=== PATIENT | female | born 1940 | race Caucasian/White ===

== ENCOUNTER → 2019-01-06 | Day surgery (SDC) | payer MEDICARE ==
[2019-01-04 14:22] LABS: BASOPHILS # (AUTO) 0.1 (0.0-0.1); BASOPHILS % 0.9 % (0.0-1.0); EOSINOPHILS # (AUTO) 0.3 (0.0-0.4); EOSINOPHILS % 1.8 % (0.0-6.0); HEMATOCRIT 34.8 % (34.2-44.1); HEMOGLOBIN 10.6 g/dL (12.0-16.0); LYMPHOCYTES # (AUTO) 3.3 (1.0-3.2); MEAN CORPUSCULAR HEMOGLOBIN 27.2 pg (28-32); MEAN CORPUSCULAR HGB CONC 30.5 g/dL (31-35); MEAN CORPUSCULAR VOLUME 89.5 fL (81-99); MONOCYTES % 6.8 % (4.4-11.3); NEUTROPHILS # (AUTO) 9.4 (2.1-6.9); NEUTROPHILS % 66.1 % (38.7-80.0); PLATELET COUNT 429 x10e3/uL (140-360); RED BLOOD COUNT 3.89 x10e6/uL (3.6-5.1); RED CELL DISTRIBUTION WIDTH 27.7 % (11.7-14.4)
[~2019-01-06] MED LIST: ATROVENT HFA12.9 GM; CITALOPRAM HBR20 MG PO; CYCLOBENZAPRINE10 MG PO; DIGOXIN125 MCG PO; EPHEDRINE SULFATE INJ 50 MG/10 ML SYR ONE; FAMOTIDINE20 MG PO; FENTANYL CITRATE/PF 100MCG/2 ML INJ ONE; FLOVENT HFA12 G1; FUROSEMIDE40 MG PO; GABAPENTIN300 MG PO; GLIMEPIRIDE2 MG PO; IRON; LIDOCAINE HCL 2% LOCAL INJ 5 ML SDV VIAL INJ ONE; LISINOPRIL2.5 MG PO; METOCLOPRAMIDE10 MG PO; MIDAZOLAM HCL 2 MG/2 ML VIAL ONE; NAPROXEN250 MG PO; NAPROXEN500 MG PO; NORCO 10-325 T1 EACH PO; OXYBUTYNIN CHLOR5 MG PO; PANTOPRAZOLE SO40 MG PO; PIOGLITAZONE HC45 MG PO; PREDNISONE20 MG PO; PROPOFOL IV EMULSION 10 MG/ML 50 ML VIAL ONE; REGLAN10 MG PO; SIMVASTATIN20 MG PO; STOOL SOFTENER50 MG; TIZANIDINE HCL4 M1 PO; TIZANIDINE HCL4 MG PO; TRAMADOL HCL100 MG PO; ULTRAM50 MG PO
--- OUTSIDE RECORDS SUMMARY | 2019-01-06 09:41 | XMS REPORT | Clinical Summary ---
Author Author [facility] Organization [facility] Address Unknown Phone Unavailable Care Team Providers Care Robotics Testing Technician Name Role Phone Jeferson Espinosa MD PCP Allergies Comments Active Allergy Reactions Severity Noted Date Codeine GI 05/28/2017 Intolerance Medications End Date Status Medication Sig Dispensed Refills Start Date Active simvastatin (ZOCOR) 20 MG Take 20 mg by 0 tablet mouth nightly. Active famotidine (PEPCID) 20 MG Take 20 mg by 0 tablet mouth 2 (two) times a day. Active digOXIN (LANOXIN) 125 mcg Take 125 mcg 0 tablet by mouth daily. Active gabapentin (NEURONTIN) Take 600 mg 0 600 mg tablet by mouth 3 (three) times a day. Active lisinopril Take 5 mg by 0 (PRINIVIL,ZESTRIL) 5 mg mouth daily. tablet Active glimepiride (AMARYL) 4 MG Take 4 mg by 0 tablet mouth 2 (two) times a day. Active traMADol (ULTRAM) 50 mg Take 100 mg 0 tablet by mouth every 8 (eight) hours as needed for moderate pain. Active citalopram (CeleXA) 40 MG Take 40 mg by 0 tablet mouth every evening. Active pioglitazone (ACTOS) 30 Take 30 mg by 0 MG tablet mouth every morning. Active oxybutynin (DITROPAN) 5 Take 5 mg by 0 MG tablet mouth 2 (two) times a day. 05/10/2018 Discontinued ipratropium (ATROVENT Inhale 2 0 HFA) 17 mcg/actuation puffs 4 inhaler (four) times a day. 05/10/2018 Discontinued fluticasone (FLOVENT HFA) Inhale 2 0 220 mcg/actuation inhaler puffs every 12 (twelve) hours. 05/10/2018 Discontinued albuterol (ACCUNEB) 2.5 Take 2.5 mg 0 mg /3 mL (0.083 %) by nebulizer solution nebulization every 6 (six) hours as needed for wheezing. 06/09/2018 ipratropium (ATROVENT Inhale 2 12.9 g 0 HFA) 17 mcg/actuation puffs 4 8 inhaler (four) times a day for 30 days. 06/09/2018 albuterol (ACCUNEB) 2.5 Take 3 mL 75 mL 0 mg /3 mL (0.083 %) (2.5 mg 8 nebulizer solution total) by nebulization every 6 (six) hours as needed for wheezing for up to 30 days. 06/09/2018 fluticasone (FLOVENT HFA) Inhale 2 12 g 0 220 mcg/actuation inhaler puffs every 8 12 (twelve) hours for 30 days. 05/15/2018 predniSONE (DELTASONE) 50 Take 1 tablet 5 tablet 0 mg tablet (50 mg total) 8 by mouth daily for 5 days. 09/19/2018 naproxen (NAPROSYN) 250 Take 1 tablet 10 tablet 0 08/20/201 MG tablet (250 mg 9 total) by mouth 2 (two) times a day with meals for 30 days. 12/08/2018 ipratropium-albuterol Take 3 mL by 540 mL 0 (DUO-NEB) 0.5-2.5 mg/3 mL nebulization 9 nebulizer every 4 (four) hours for 30 days. 12/09/2018 predniSONE (DELTASONE) 20 Take 1 tablet 10 tablet 0 mg tablet (20 mg total) 9 by mouth daily for 30 days. 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 06/23/2017 Closed compression fracture of L1 lumbar vertebra 05/28/2017 Encounters Care Team Description Date Type Specialty Ezekiel George MD Berberian, Esteban N., MD COPD exacerbation (HCC) (Primary Dx); Anemia, unspecified type 11/06/2018 Emergency General Internal Medicine - 11/08/2018 11/06/2018 Travel Thiago Manrique DO Sprain of low back, initial encounter (Primary Dx); Sacral insufficiency fracture, initial encounter; Chronic bilateral low back pain without sciatica 08/20/2018 Emergency Emergency Medicine 07/12/2018 Emergency Emergency Medicine Jeferson Espinosa MD Tremor; Radiculopathy of cervical spine 06/24/2018 Hospital Radiology Encounter Jeferson Espinosa MD Screening breast examination 06/24/2018 Hospital Radiology Encounter Jeferson Espinosa MD Tremor of unknown origin; Radiculopathy of cervical spine 06/24/2018 Hospital Radiology Encounter Jeferson Espinosa MD Tremor of unknown origin (Primary Dx); Radiculopathy of cervical spine; Screening breast examination 06/15/2018 Transcribe Access Orders Gerhard Morris Jr., Jt Kuo MD COPD with acute exacerbation (HCC) (Primary Dx) 05/10/2018 Emergency Emergency Medicine after 01/05/2018 Immunizations Name Dates Previously Given Next Due FLUCELVAX QUAD PF (0.5mL 08/15/2017 syringe) Social History Date Tobacco Use Types Packs/Day Years Used Former Smoker 1.5 Smokeless Tobacco: Former Quit: 05/28/2004 User Comments: quit smoking Alcohol Use Drinks/Week oz/Week Comments No Sex Assigned at Date Recorded Not on file Industry Job Start Date Occupation Not on file Not on file Not on file Travel End Travel History Travel Start No recent travel history available. Last Filed Vital Signs Time Taken Vital Sign Reading 11/08/2018 11:43 AM CDT Blood Pressure 147/65 11/08/2018 3:40 PM CDT Pulse 85 11/08/2018 11:43 AM CDT Temperature 36.2 C (97.1 F) 11/08/2018 3:40 PM CDT Respiratory Rate 18 11/08/2018 11:43 AM CDT Oxygen Saturation 97% - Inhaled Oxygen - Concentration 11/06/2018 11:27 PM CDT Weight 75.8 kg (167 lb) 11/06/2018 11:27 PM CDT Height 167.6 cm (5' 6") 11/06/2018 11:27 PM CDT Body Mass Index 26.95 Plan of Treatment Health Maintenance Due Date Last Done Comments SHINGLES VACCINES (#1) 1990 65+ PNEUMOCOCCAL VACCINE 2005 (1 of 2 - PCV13) INFLUENZA VACCINE 02/24/2019 08/15/2017 Implants Device Identifier Shelf Expiration Date Model / Serial / Lot Implanted Type Area Manufactur er [id number] / / Kit Sys Autoplex W/O Ndl Vertaplex Surgical N/A: N/A DOTTIE Hv Strl - [id number] Implants; INSTRUMENT Implanted: 05/29/2017 (Quantity not Expanders; S on file) Extenders; Surgical Wires Procedures Comments Procedure Name Priority Date/Time Associated Diagnosis POC GLUCOSE Routine 11/08/2018 12:00 PM CDT POC GLUCOSE Routine 11/08/2018 6:33 AM CDT TRANSFUSE RED BLOOD CELLS Routine 11/08/2018 5:44 AM CDT MANUAL DIFFERENTIAL Routine 11/08/2018 4:29 AM CDT ESTIMATED GFR Routine 11/08/2018 4:29 AM CDT BASIC METABOLIC PANEL Routine 11/08/2018 4:29 AM CDT CBC WITH PLATELET AND Routine 11/08/2018 DIFFERENTIAL 4:29 AM CDT TRANSFUSE RED BLOOD CELLS Routine 11/08/2018 1:08 AM CDT POC GLUCOSE Routine 11/07/2018 8:24 PM CDT POC GLUCOSE Routine 11/07/2018 4:21 PM CDT MANUAL DIFFERENTIAL Routine 11/07/2018 4:48 AM CDT ESTIMATED GFR Routine 11/07/2018 4:48 AM CDT BASIC METABOLIC PANEL Routine 11/07/2018 4:48 AM CDT CBC WITH PLATELET AND Routine 11/07/2018 DIFFERENTIAL 4:48 AM CDT TROPONIN Timed 11/07/2018 1:42 AM CDT TROPONIN Timed 11/06/2018 9:40 PM CDT PREPARE RBC Routine 11/06/2018 6:41 PM CDT TYPE AND SCREEN Routine 11/06/2018 6:41 PM CDT MANUAL DIFFERENTIAL STAT 11/06/2018 5:05 PM CDT ESTIMATED GFR STAT 11/06/2018 5:05 PM CDT B NATRIURETIC PEPTIDE STAT 11/06/2018 5:05 PM CDT TROPONIN STAT 11/06/2018 5:05 PM CDT COMPREHENSIVE METABOLIC STAT 11/06/2018 PANEL 5:05 PM CDT CBC WITH PLATELET AND STAT 11/06/2018 DIFFERENTIAL 5:05 PM CDT XR CHEST 2 VW STAT 11/06/2018 5:01 PM CDT ECG 12-LEAD STAT 11/06/2018 4:38 PM CDT ECG ED PRELIMINARY Routine 11/06/2018 INTERPRETATION 4:[address] LUMBAR SPINE WO STAT 08/20/2018 CONTRAST 11:30 AM SUPERVISOR TOWER URINALYSIS SCREEN AND Routine 07/12/2018 MICROSCOPY, WITH REFLEX 3:15 PM [employer]PERVISOR TOWER TO CULTURE GRAM STAIN Routine 07/12/2018 3:15 PM [employer] URINE CULTURE Routine 07/12/2018 3:15 PM [employer]PER[employer]OWER XR CERVICAL SPINE Routine 06/24/2018 Tremor COMPLETE 2:25 PM [employer] Radiculopathy of cervical spine MAMMO BREAST SCREEN Routine 06/24/2018 Screening breast TOMOSYNTHESIS BILATERAL 1:34 PM [employer]PER[employer]OR TOWER examination MRI CERVICAL SPINE WO Routine 06/24/2018 Tremor of unknown origin CONTRAST 12:31 PM [employer]OWER Radiculopathy of cervical spine XR CHEST 2 VW STAT 05/10/2018 8:49 PM CDT ECG ED PRELIMINARY Routine 05/10/2018 INTERPRETATION 7:56 PM CDT SMEAR REVIEW STAT 05/10/2018 7:48 PM CDT D-DIMER STAT 05/10/2018 7:48 PM CDT ESTIMATED GFR STAT 05/10/2018 7:48 PM CDT B NATRIURETIC PEPTIDE STAT 05/10/2018 7:48 PM CDT TROPONIN STAT 05/10/2018 7:48 PM CDT COMPREHENSIVE METABOLIC STAT 05/10/2018 PANEL 7:48 PM CDT HC COMPLETE BLD COUNT STAT 05/10/2018 W/AUTO DIFF 7:48 PM CDT ECG 12-LEAD STAT 05/10/2018 7:15 PM CDT after 01/05/2018 Results * POC glucose (11/08/2018 12:00 PM CDT) Only the most recent of 4 results within the time period is included. [facility] POC glucose 154 (H) 65 - 100 mg/dL [facility] Comment: [place] Meter ID: [id number] [facility] Ladle Repairman: [facility] Specimen Performing Organization Address City/State/Zipcode Phone Number [facility] [address] [place] [address] PATHOLOGY AND GENOMIC MEDICINE [place] [id number] [place], [place] [id number] [place] [address] * Transfuse RBC (11/08/2018 5:44 AM CDT) Only the most recent of 3 results within the time period is included. * Estimated GFR (11/08/2018 4:29 AM CDT) Only the most recent of 4 results within the time period is included. [facility] Estimated GFR 43 (A) mL/min/1.73 m2 [facility] Comment: [facility] G1 >=90 Normal or high G2 60-89Mildly decreased F6m64-05 Mildly to moderately decreased F8g72-25 Moderately to severely decreased G4 15-29Severely decreased G5 <15Kidney failure The eGFR was calculated using the Chronic Kidney Disease Epidemiology Collaboration (CKD-EPI) equation. Interpretation is based on recommendations of the National Kidney Foundation-Kidney Disease Outcomes Quality Initiative (NKF-KDOQI) published in 2014. Specimen Plasma specimen Performing Organization Address City/State/Zipcode Phone Number [facility] [address] [facility] [place] [address] PATHOLOGY AND GENOMIC MEDICINE [address] * Manual differential (11/08/2018 4:29 AM CDT) Only the most recent of 3 results within the time period is included. Manual PERFORMED [facility] differential [facility] Neutrophils 77.0 (H) 36.0 - 66.0 % [facility] Lymphocytes 15.0 (L) 24.0 - 44.0 % [facility] Monocytes 3.0 0.0 - 6.0 % [facility] Eosinophils 0.0 0.0 - 6.0 % [facility] Basophils 0.0 0.0 - 1.2 % [facility] Metamyelocytes 0 0 - 1 % [facility] Myelocytes 5 (H) 0 - 1 % [facility] Promyelocytes 0 0 - 1 % [facility] Platelet slide Brayden slt incr [facility] review [facility] Toxic Slight [facility] granulation [facility] Anisocytosis Moderate [facility] Polychromasia slight [facility] Tear drop cells Occasional [facility] Schistocytes Occasional [facility] Ovalocytes Moderate [facility] Enlarged few [facility] platelets [facility] Specimen Performing Organization Address City/State/Zipcode Phone Number [place] [id number] [place] [address] PATHOLOGY AND GENOMIC MEDICINE [place] [id number] * CBC with platelet and differential (11/08/2018 4:29 AM CDT) Only the most recent of 4 results within the time period is included. WBC 14.9 (H) 4.2 - 11.0 k/uL [facility] RBC 4.17 4.04 - 5.86 m/uL [facility] HGB 9.2 (L)Comment: REC. 2 UNIT 11.5 - 15.3 g/dL [facility] HCT 32.0 (L) 34.0 - 45.0 % [facility] MCV 76.7 (L) 80.0 - 98.0 fL [facility] MCH 22.1 (L) 27.0 - 34.0 pg [facility] MCHC 28.8 (L) 31.5 - 36.5 g/dL [facility] RDW - SD 72.9 (H) 37.0 - 51.0 fL [facility] MPV 9.2 7.4 - 10.4 fL [facility] Platelet count 511 (H) 150 - 400 k/uL [facility] Nucleated RBC 0.40 /100 WBC [facility] Neutrophils 77.0 (H) 36.0 - 66.0 % [facility] Lymphocytes 15.0 (L) 24.0 - 44.0 % [facility] Monocytes 3.0 0.0 - 6.0 % [facility] Eosinophils 0.0 0.0 - 6.0 % [facility] Basophils 0.0 0.0 - 1.2 % [facility] Specimen Blood Performing Organization Address City/State/Zipcode Phone Number [facility] [address] [place] [id number] PATHOLOGY AND GENOMIC MEDICINE [place] [phone] * Basic metabolic panel (11/08/2018 4:29 AM CDT) Only the most recent of 2 results within the time period is included. [facility] Sodium 132 (L) 135 - 150 mEq/L [facility] Potassium 4.9 3.5 - 5.0 mEq/L [facility] Chloride 92 (L) 98 - 112 mEq/L [facility] CO2 33 (H) 24 - 31 mmol/L [facility] Anion gap 7@ANIO 7 - 15 mEq/L [facility] BUN 18 7 - 18 mg/dL [facility] Creatinine 1.20 (H) 0.50 - 0.90 mg/dL [facility] Glucose 100 65 - 100 mg/dL [facility] Calcium 9.7 8.8 - 10.2 mg/dL [facility] Specimen Plasma specimen Performing Organization Address City/[facility]/[place] [address] PATHOLOGY AND [facility] MEDICINE [address] * Troponin (11/07/2018 1:42 AM CDT) Only the most recent of 4 results within the time period is included. [facility] Troponin <0.30 0.00 - 0.30 ng/mL [facility] Comment: [facility] 0.11 - 1.49 [facility] indicate increased risk of acute coronary syndrome. >=1.5 ng/ml Consistent with acute myocardial infarction. The diagnostic value of a single normal or non-diagnostic result is questionable.Serial samples at 2-6 hour intervals are required to rule out acute myocardial injury. Specimen Plasma specimen Performing Organization Address City/[facility]/[place] [address] PATHOLOGY AND [facility] MEDICINE [address] * Prepare RBC, 2 Units (11/06/2018 6:41 PM CDT) [facility] Product name Red Blood Cells -1, Leukored [facility] Unit number [id number] [facility] Product code [id number] [facility] Dispense status Returned to BB not transfused [facility] Blood [id number] [facility] expiration date [facility] Blood type code 6200 [facility] Blood type A POSITIVE [facility] Product name Red Blood Cells -1, Leukored [facility] Unit number [id number] [facility] Product code [id number] [facility] Dispense status Transfused [facility] Blood [id number] [facility] expiration date [facility] Blood type code 6200 [facility] Blood type A POSITIVE [facility] Product name Red Blood Cells -1, Leukored [facility] Unit number [id number] [facility] Product code [id number] [facility] Dispense status Transfused [facility] Blood [id number] [facility] expiration date [facility] Blood type code 6200 [facility] Blood type A POSITIVE [facility] Specimen Blood Performing Organization Address City/[facility] Phone Number [facility] [address] [place] [address] PATHOLOGY AND GENOMIC MEDICINE [place] [address] * Type and screen (11/06/2018 6:41 PM CDT) ABO grouping A [facility] Rh type POS [facility] Antibody screen NEG [facility] (gel) [facility] Specimen Blood Performing Organization Address City/[facility]/Zipcode Phone Number [facility] [place] [address] [place] [address] PATHOLOGY AND GENOMIC MEDICINE [place] [address] [address] * B natriuretic peptide (11/06/2018 5:05 PM CDT) Only the most recent of 2 results within the time period is included. BNP 62 0 - 100 pg/mL [facility] Specimen Blood Performing Organization Address City/[facility]/Zipcode Phone Number [facility] [address] [place] [address] PATHOLOGY AND GENOMIC MEDICINE [place] [address] * Comprehensive metabolic panel (11/06/2018 5:05 PM CDT) Only the most recent of 2 results within the time period is included. Sodium 127 (L) 135 - 150 mEq/L [facility] Potassium 4.9 3.5 - 5.0 mEq/L [facility] Chloride 83 (L) 98 - 112 mEq/L [facility] CO2 34 (H) 24 - 31 mmol/L [facility] Anion gap 10@ANIO 7 - 15 mEq/L [facility] BUN 24 (H) 7 - 18 mg/dL [facility] Creatinine 1.40 (H) 0.50 - 0.90 mg/dL [facility] Glucose 292 (H) 65 - 100 mg/dL [facility] Calcium 9.0 8.8 - 10.2 mg/dL [facility] Protein 6.9 6.3 - 8.3 g/dL [facility] Albumin 3.0 (L) 3.5 - 5.0 g/dL [facility] A/G ratio 0.8 0.7 - 3.8 [facility] Alkaline 92 0 - 104 U/L [facility] phosphatase [facility] AST 19 10 - 35 U/L [facility] ALT 17 5 - 50 U/L [facility] Total bilirubin <0.3 0.2 - 1.2 mg/dL [facility] Specimen Plasma specimen Performing Organization Address City/[facility]/Zipcode Phone Number [facility] [address] [facility] [place] [address] PATHOLOGY AND GENOMIC MEDICINE [place] CAODA[place] [address] [place] [address] [facility] * XR Chest 2 Vw (11/06/2018 5:01 PM CDT) Only the most recent of 2 results within the time period is included. Specimen Narrative Performed At EXAMINATION:XR CHEST 2 VW RADIANT CLINICAL HISTORY:Shortness of breath COMPARISON:May 10, 2018 IMPRESSION: Postoperative changes are noted in the thoracic spine. There is cardiomegaly.Hilar prominent as are interstitial markings generally.There are reticulonodular changes in both lung birch more towards the lung bases.This reticulonodular pattern is more pronounced than on the preceding exam. [facility]-[id number] Procedure Note Hm Interface, Radiology Results Incoming - 11/06/2018 5:06 PM CDT EXAMINATION: XR CHEST 2 VW CLINICAL HISTORY: Shortness of breath COMPARISON: May 10, 2018 IMPRESSION: Postoperative changes are noted in the thoracic spine. There is cardiomegaly. Hilar prominent as are interstitial markings generally. There are reticulonodular changes in both lung birch more towards the lung bases. This reticulonodular pattern is more pronounced than on the preceding exam. [facility]-[id number] Performing Organization Address City/State/Zipcode Phone Number [facility] [address] [place] [address] * ECG 12 lead (11/06/2018 4:38 PM CDT) Only the most recent of 2 results within the time period is included. Ventricular 70 [facility] rate Atrial rate 300 [facility] QRSD interval 80 [facility] QT interval 392 [facility] QTC interval 423 [facility] QRS axis 1 52 [facility] T wave axis 56 [facility] EKG impression Atrial flutter-Abnormal ECG-In [facility] MUSE automated comparison with ECG of 10-MAY-2018 19:15,-Atrial fibrillation has replaced Sinus rhythm-ST elevation now present in Inferior leads- Specimen Narrative Performed At Performing Organization Address City/State/Zipcode Phone Number [facility] [employer] [address] [place] [address] * ECG ED Preliminary Interpretation - Not an Order (11/06/2018 4:32 PM CDT) Only the most recent of 2 results within the time period is included. Narrative Performed At Ezekiel George MD 11/08/2018 11:44 AM ECG ED Preliminary Interpretation - Not an Order Performed by: Ezekiel George MD Authorized by: Ezekiel George MD ECG reviewed by ED Physician in the absence of a booster pump oiler: yes Interpretation: Interpretation: abnormal Rate: ECG rate:70 ECG rate assessment: normal Rhythm: Rhythm: atrial flutter Ectopy: Ectopy: none QRS: QRS axis:Normal * CT Lumbar Spine Wo Contrast (08/20/2018 11:30 AM SUPERVISOR TOWER) Specimen Narrative Performed At Study: CT LUMBAR SPINE WO CONTRAST. RADIANT HISTORY: back pain. COMPARISON:June 23, 2017 TECHNIQUE: Multiple axial CT images of the lumbar spine performed without intravenous contrast. Sagittal and coronal reconstructions performed. CT imaging was performed with iterative reconstruction technique and/or automated exposure control to reduce radiation dose. FINDINGS: Mineralization is significantly diffusely decreased. There has been prior fracture treatment with polymethylmethacrylate of the vertebral bodies of T12, L1, and L4 similar to prior. Depression of the superior endplate of L5 is stable and chronic. There is also a slight stable depression of the superior endplate of L3 vertebral body. No detectable acute fractures in the lumbar spine. The lumbar lordosis is maintained. There are no subluxations. There is no severe disc space loss since prior. Broad shallow disc protrusions present at L4-5 and L5/S1 with stable mild canal stenoses at these levels. There is a shallow disc bulge at L3-4 also with stable stenosis. No significant foraminal stenosis at all levels. Subtle cortical irregularity and lucency along the left sacral ala likely an insufficiency fracture. Paravertebral soft tissues are unremarkable. Stable right adrenal nodule. IMPRESSION: No acute findings in the lumbar spine. Insufficiency fracture of the left sacrum. [id number] Procedure Note Interface, Radiology Results Incoming - 08/20/2018 12:16 PM SUPERVISOR TOWER Study: CT LUMBAR SPINE WO CONTRAST. HISTORY: back pain. COMPARISON:June 23, 2017 TECHNIQUE: Multiple axial CT images of the lumbar spine performed without intravenous contrast. Sagittal and coronal reconstructions performed. CT imaging was performed with iterative reconstruction technique and/or automated exposure control to reduce radiation dose. FINDINGS: Mineralization is significantly diffusely decreased. There has been prior fracture treatment with polymethylmethacrylate of the vertebral bodies of T12, L1, and L4 similar to prior. Depression of the superior endplate of L5 is stable and chronic. There is also a slight stable depression of the superior endplate of L3 vertebral body. No detectable acute fractures in the lumbar spine. The lumbar lordosis is maintained. There are no subluxations. There is no severe disc space loss since prior. Broad shallow disc protrusions present at L4-5 and L5/S1 with stable mild canal stenoses at these levels. There is a shallow disc bulge at L3-4 also with stable stenosis. No significant foraminal stenosis at all levels. Subtle cortical irregularity and lucency along the left sacral ala likely an insufficiency fracture. Paravertebral soft tissues are unremarkable. Stable right adrenal nodule. IMPRESSION: No acute findings in the lumbar spine. Insufficiency fracture of the left sacrum. [id number] Performing Organization Address City/State/Zipcode Phone Number [facility] [address] [place] [address] * Urinalysis screen and microscopy, with reflex to culture (07/12/2018 3:15 PM SUPERVISOR TOWER) Specimen site Clean catch [facility] Color, UA Yellow [facility] Appearance, UA Clear [facility] Specific 1.009 1.001 - 1.035 [facility] gravity, [facility] pH, UA 6.0 5.0 - 8.5 [facility] Protein, UA Negative Negative [facility] Glucose, UA Negative Negative [facility] Ketones, UA Negative Negative [facility] Bilirubin, UA Negative Negative [facility] Blood, UA Negative Negative [facility] Nitrite, UA Negative Negative [facility] Urobilinogen, 2.0 (A) <2.0 [facility] Leukocyte Trace (A) Negative [facility] esterase, UA [facility] Epithelial Few /HPF [facility] cells, UA [facility] WBC, UA 4 0 - 5 /HPF [facility] RBC, UA 1 0 - 5 /HPF [facility] Bacteria, UA None seen None seen [facility] Yeast, UA None seen [facility] Yeast with None seen WAYNE pseudohyphae, [facility] Specimen Urine Performing Organization Address City/State/Zipcode Phone Number [facility] [place] [address] [place] [id number] PATHOLOGY AND GENOMIC MEDICINE [facility] [address] * Gram stain (07/12/2018 3:15 PM SUPERVISOR TOWER) Gram stain No WBC's or organisms seen. WAYNE result Comment: CAODAISM Specimen [facility] Specimen Source: Urine Specimen Site: Clean catch Specimen Urine Performing Organization Address City/[facility]/Zipcode Phone Number [facility] DEPARTMENT OF [address] [place] [address] PATHOLOGY AND GENOMIC MEDICINE [address] * Urine culture (07/12/2018 3:15 PM SUPERVISOR TOWER) Urine culture Mixed medhat <=10-3 col/cc WAYNE isolate Comment: CAODAISM Specimen Information HOSPITAL Specimen Source: Urine Specimen Site: Clean catch Specimen Urine Performing Organization Address City/[facility] Phone Number [facility] DEPARTMENT OF [address] [place] [address] PATHOLOGY AND GENOMIC MEDICINE [address] * XR Cervical Spine Complete (06/24/2018 2:25 PM SUPERVISOR TOWER) Specimen Narrative Performed At EXAMINATION:XR CERVICAL SPINE COMPLETE RADIANT COMPARISON:None CLINICAL HISTORY:R25.1 Tremorunspecified, M54.12 Radiculopathycervical region COMMENTS:Frontal lateral and 2 oblique views of the cervical spine are provided. FINDINGS:There is mild spondylosis most prominent at C3-4 and C5-6. Bilateral laminectomy changes noted at C3-4 and C4-5 and C5-C6. There is bony encroachment upon the neural foramina bilaterally at C3-4 and towards the left side at C5-6. No significant subluxation. There is mild endplate sclerosis. IMPRESSION:Postoperative and degenerative change. The details can be further evaluated with MRI. [id number] Procedure Note Interface, Radiology Results Incoming - 06/24/2018 2:32 PM SUPERVISOR TOWER EXAMINATION: XR CERVICAL SPINE COMPLETE COMPARISON: None CLINICAL HISTORY: R25.1 Tremor unspecified, M54.12 Radiculopathy cervical region COMMENTS: Frontal lateral and 2 oblique views of the cervical spine are provided. FINDINGS: There is mild spondylosis most prominent at C3-4 and C5-6. Bilateral laminectomy changes noted at C3-4 and C4-5 and C5-C6. There is bony encroachment upon the neural foramina bilaterally at C3-4 and towards the left side at C5-6. No significant subluxation. There is mild endplate sclerosis. IMPRESSION: Postoperative and degenerative change. The details can be further evaluated with MRI. [id number] Performing Organization Address [facility] Phone Number [facility] [address] [place] [address] * Mammo Breast Screen Tomosynthesis Bilateral (06/24/2018 1:34 PM SUPERVISOR TOWER) Specimen Narrative Performed At PROCEDURE: MAMMO BREAST SCREEN TOMOSYNTHESIS BILATERAL [facility] Computer aided detection was utilized for the interpretation of the digital bilateral screening mammography with tomosynthesis. COMPARISON: There is no prior studies for comparison. DENSITY: The breast parenchyma is heterogeneously dense, decreasing the sensitivity of the study. There are benign scattered calcifications. There is no suspicious masses, architectural distortions or grouped calcifications.. IMPRESSION:No mammographic evidence of malignancy. RECOMMENDATION: Comparison with physical exam and follow-up mammograms should be based on the ACR guidelines. BI-RADS 2: Benign. This facility is accredited by the [place] for Mammography. A negative x-ray report should not delay biopsy if a dominant or clinically suspicious mass is present.Not all cancers are identified by x-ray. [id number] Performing Organization Address [facility] Phone Number [facility] [address] [place] [address] * MRI Cervical Spine Wo Contrast (06/24/2018 12:31 PM SUPERVISOR TOWER) Specimen Narrative [facility]formed At [facility] EXAMINATION:MRI CERVICAL SPINE WO CONTRAST CLINICAL HISTORY:R25.1 Tremorunspecified, M54.12 Radiculopathycervical region, R25.1 COMPARISON:None TECHNIQUE:Multiplanar multisequence images were obtained through the cervical spine including the following pulse sequences, sagittal T2, sagittal STIR, sagittal T1, axial T2 FSE and T2 gradient echo. DISCUSSION: There is normal alignment of the cervical spine There is no evidence of expansile or destructive osseous lesions. Normal bone marrow signal intensity on T1 WI. The visualized posterior fossa and craniocervical junction are unremarkable.Again seen status post posterior decompression of the cervical spine at C3-C6 associated laminectomy and resection of spinous processes. The cervical cord is normal in size and signal intensity. There is no evidence of intra or extradural mass or collection. The pre and paravertebral soft tissues are unremarkable. Evaluation of individual intervertebral disc demonstrate the following findings: - C1-C2: Degenerative thickening of tectorial membrane and atlantodental ligamental apparatus , there is no significant central spinal canal stenosis or cord compression. Unremarkable bilateral atlantoaxial and atlantooccipital joints. - C2-C3: No significant posterior disc disease, spinal canal or neural foraminal stenosis. - C3-C4: Shallow posterior disc protrusion remodeling the ventral thecal sac. Bilateral uncovertebral and facet arthropathy resulting in moderate neural foraminal stenosis. - C4-C5: Posterior disc protrusion remodeling the ventral thecal sac. Bilateral uncovertebral and facet arthropathy. The central canal and neuroforamina are patent. - C5-C6: Loss of disc and anterior spondylosis. Right paracentral disc protrusion. Bilateral uncovertebral and facet arthropathy resulting in [id number] neural foraminal stenosis. - C6-C7: Loss of disc and anterior spondylosis. Modic type I marrow changes seen within the endplates. Bilateral uncovertebral and facet arthropathy resulting in mild narrowing of the neural foramina. There is posterior disc protrusion remodeling the ventral thecal sac without significant cord compression. The central canal is patent. - C7-T1: Bilateral facet arthropathy resulting in grade 1 anterolisthesis of C7 over T1. The central canal and neuroforamina are patent. IMPRESSION: Comparison was made with MRI of the cervical spine dated October 21, 2017. 1. Again seen status post posterior decompression of the cervical spine at C3-C6 associated laminectomy and resection of spinous processes. 2. Multilevel degenerative disc disease, uncovertebral and facet arthropathy resulting in the following findings: - C3-C4 shallow posterior disc protrusion and moderate neural foraminal stenosis. - C4-C5 shallow posterior disc protrusion without significant nerve root impingement. - C5-C6 mild to moderate neural foraminal stenosis. - C6-C7 to severe disc protrusion remodeling the 3. The central canal is patent. [id number] Procedure Note Hm Interface, Radiology Results Incoming - 06/24/2018 6:38 PM SUPERVISOR TOWER EXAMINATION: MRI CERVICAL SPINE WO CONTRAST CLINICAL HISTORY: R25.1 Tremor unspecified, M54.12 Radiculopathy cervical region, R25.1 COMPARISON: None TECHNIQUE: Multiplanar multisequence images were obtained through the cervical spine including the following pulse sequences, sagittal T2, sagittal STIR, sagittal T1, axial T2 FSE and T2 gradient echo. DISCUSSION: There is normal alignment of the cervical spine There is no evidence of expansile or destructive osseous lesions. Normal bone marrow signal intensity on T1 WI. The visualized posterior fossa and craniocervical junction are unremarkable. Again seen status post posterior decompression of the cervical spine at C3-C6 associated laminectomy and resection of spinous processes. The cervical cord is normal in size and signal intensity. There is no evidence of intra or extradural mass or collection. The pre and paravertebral soft tissues are unremarkable. Evaluation of individual intervertebral disc demonstrate the following findings: - C1-C2: Degenerative thickening of tectorial membrane and atlantodental ligamental apparatus , there is no significant central spinal canal stenosis or cord compression. Unremarkable bilateral atlantoaxial and atlantooccipital joints. - C2-C3: No significant posterior disc disease, spinal canal or neural foraminal stenosis. - C3-C4: Shallow posterior disc protrusion remodeling the ventral thecal sac. Bilateral uncovertebral and facet arthropathy resulting in moderate neural foraminal stenosis. - C4-C5: Posterior disc protrusion remodeling the ventral thecal sac. Bilateral uncovertebral and facet arthropathy. The central canal and neuroforamina are patent. - C5-C6: Loss of disc and anterior spondylosis. Right paracentral disc protrusion. Bilateral uncovertebral and facet arthropathy resulting in [id number] neural foraminal stenosis. - C6-C7: Loss of disc and anterior spondylosis. Modic type I marrow changes seen within the endplates. Bilateral uncovertebral and facet arthropathy resulting in mild narrowing of the neural foramina. There is posterior disc protrusion remodeling the ventral thecal sac without significant cord compression. The central canal is patent. - C7-T1: Bilateral facet arthropathy resulting in grade 1 anterolisthesis of C7 over T1. The central canal and neuroforamina are patent. IMPRESSION: Comparison was made with MRI of the cervical spine dated October 21, 2017. 1. Again seen status post posterior decompression of the cervical spine at C3-C6 associated laminectomy and resection of spinous processes. 2. Multilevel degenerative disc disease, uncovertebral and facet arthropathy resulting in the following findings: - C3-C4 shallow posterior disc protrusion and moderate neural foraminal stenosis. - C4-C5 shallow posterior disc protrusion without significant nerve root impingement. - C5-C6 mild to moderate neural foraminal stenosis. - C6-C7 to severe disc protrusion remodeling the 3. The central canal is patent. [facility] [id number] Performing Organization Address City/State/Zipcode Phone Number [facility] [address] [place] [address] * Smear review (05/10/2018 7:48 PM CDT) Platelet slide Brayden adequate [facility] review OF PATHOLOGY AND GENOMIC MEDICINE Specimen Performing Organization Address City/State/Zipcode Phone Number [facility] [place] OF [address] [facility] [place] [address] PATHOLOGY AND GENOMIC MEDICINE * D-dimer (05/10/2018 7:48 PM CDT) D-dimer 0.44 (H) 0.00 - 0.40 ug/mL [facility] Comment: FEU OF PATHOLOGY Units are ug/ml Fibrinogen AND GENOMIC Equivalent Unit. MEDICINE When combined with low clinical probability, D-dimer results of less than 0.5 ug/ml FEU have a good negativepredictive value in excluding PE or DVT. For D-dimer results greater than 0.5ug/ml FEU further testing is indicated if PE or DVT is suspectedclinically. Elevated D-dimer results have been reported in DVT, PE, and DIC cases and may indicate the presence of a clot. D-dimer results may be elevated due to old age, , inflammatory diseases, trauma, post-operative states, sepsis, and malignancies. Specimen Blood Performing Organization Address City/State/Zipcode Phone Number [facility] [place] OF [address] [facility] [place] [address] PATHOLOGY AND GENOMIC MEDICINE after 01/05/2018 Insurance Type Payer Benefit Subscriber ID Effective Phone Address Plan / Dates Group [facility] [employer]LIN BARRY xxxxxxxxxxx 2016-P [facility] [facility] AD[facility] Advance Directives Patient has advance care planning documents, and code status on file. For more i nformation, please contact: [place] [address] [place] [address] Date Inactivated Comments Code Status Date Activated 11/08/2018 8:00 PM Full Code 11/06/2018 9:19 PM Code Status decision reached by: Patient
--- OUTSIDE RECORDS SUMMARY | 2019-01-06 09:41 | XMS REPORT ---
Author Author [facility] Address Unknown Phone Unavailable Care Team Providers Care Coremaker Machine Name Role Phone Warren MORENO Unavailable Unavailable Юлия ALEX Unavailable Unavailable Payers Payer Name Policy Type Policy Number Effective Date Expiration Date Problems This patient has no known problems. Allergies, Adverse Reactions, Alerts Allergy Name Allergy Type Status Severity Reaction(s) Onset Date Inactive Date Treating Clinician Comments codeine DA Active PA 2018-11-01 00:00:00 prednisone DA Active SV 2018-11-01 00:00:00 codeine DA Active PA 2017-05-13 00:00:00 prednisone DA Active SV 2017-05-13 00:00:00 Medications This patient has no known medications. Results Test Description Test Time Test Comments Text Results Atomic Results Result Comments - SP FLUORO GUID CTRL ACC DEV 2018-11-01 15:08:00 Name: LUZ MARIA [facility] 1940 Age/S: 78 / F [address] [facility] Unit #: [id number] [place] [address] Phys: Jeferson Espinosa MD Acct: [id number] Dis Date: Status: REG RCR PHONE #: [phone] Exam Date: 11/01/2018 1236 FAX #: [phone] Reason: EXAMS: CPT CODE: [id number] SP FLUORO GUID CTRL ACC DEV 40208 Fluoro Time: 30 DAP (Gy m2): 2420 Air Kerma (mGy): 6.8 EXAM: PICC with sonographic and fluoroscopic guidance; CPT: 45644, 86276, 41176; CLINICAL INFORMATION: Anemia; patient needs PICC line for blood transfusions; PROCEDURE AND FINDINGS: After obtaining informed consent the patient was placed supine on the procedure table and the left arm was prepped and draped in the usual sterile fashion, applying all elements of maximal sterile barrier technique. Ultrasound of the left arm demonstrated a patent and compressible basilic vein. Sonographic images were stored in PACS. Xylocaine was administered and the left basilic vein was accessed with a micropuncture system, using sonographic guidance, followed by insertion of an 018 guidewire and a 5 [place] peel-away sheath. Under fluoroscopic guidance the guidewire was advanced into the right atrium. A dual-lumen PICC line was inserted and positioned with its tip at the SVC/right atrial junction. Good blood return was noticed; the PICC line was sutured to the skin and was flushed with heparinized saline. No complications. IMPRESSION: Successful insertion of a left arm PICC line, using sonographic and fluoroscopic guidance. Fluoroscopy Time: 30 sec CAK : 6.8 mGy DAP : 2420 mGy sq cm at 1508 Reported and signed by: Mars Aquino M.D. CC: Jeferson Espinosa Technologist: David Murray RT(R) Trnscb Date/Time: 11/01/2018 (1508) Dorothy Orig Print D/T: S: 11/01/2018 (1882) PAGE 1 Signed Report - US GUIDANCE VASC ACCESS 2018-11-01 15:08:00 Name: LUZ MARIA [facility] : 1940 Age/S: 78 / F [address] [facility] Unit #: [id number] [place]: [place] [address] Phys: Jeferson Espinosa MD Acct: [id number] Dis Date: Status: REG RCR PHONE #: [phone] Exam Date: 11/01/2018 1236 FAX #: [phone] Reason: EXAMS: CPT CODE: [id number] US GUIDANCE VASC ACCESS 73724 Fluoro Time: 0 DAP (Gy m2): 0 Air Kerma (mGy): 0 EXAM: PICC with sonographic and fluoroscopic guidance; CPT: 14522, 14760, 51725; CLINICAL INFORMATION: Anemia; patient needs PICC line for blood transfusions; PROCEDURE AND FINDINGS: After obtaining informed consent the patient was placed supine on the procedure table and the left arm was prepped and draped in the usual sterile fashion, applying all elements of maximal sterile barrier technique. Ultrasound of the left arm demonstrated a patent and compressible basilic vein. Sonographic images were stored in PACS. Xylocaine was administered and the left basilic vein was accessed with a micropuncture system, using sonographic guidance, followed by insertion of an 018 guidewire and a 5 [place] peel-away sheath. Under fluoroscopic guidance the guidewire was advanced into the right atrium. A dual-lumen PICC line was inserted and positioned with its tip at the SVC/right atrial junction. Good blood return was noticed; the PICC line was sutured to the skin and was flushed with heparinized saline. No complications. IMPRESSION: Successful insertion of a left arm PICC line, using sonographic and fluoroscopic guidance. Fluoroscopy Time: 30 sec CAK : 6.8 mGy DAP : 2420 mGy sq cm at 1508 Reported and signed by: Mars Aquino M.D. CC: Jeferson Espinosa Technologist: David Murray RT(R) Trnscb Date/Time: 11/01/2018 (8057) SerenaGRW Orig Print D/T: S: 11/01/2018 (8103) PAGE 1 Signed Report LUMBAR 3 VIEW [place] [address] Patient Name: LUZ MARIA RAMIREZ MR #: [id number] : 1940 Age/Sex: 76/F Req #: [id number] Adm Physician: Ordered by: FANTASMA MCKENZIE RN INVASIVE Report #: [id number] Location: ER Room/Bed: Procedure: [id number] DX/LUMBAR 3 VIEW Exam Date: 04/09/17 Exam Time: 1634 REPORT STATUS: Signed PROCEDURE: L-SPINE 3V COMPARISON: CT of the lumbar spine from 03/19/2017. INDICATIONS: BACK PAIN FINDINGS: 3 views of the lumbar spine (AP, lateral, and oblique). There are 5 lumbar-type vertebral bodies. Redemonstrated is a compression fracture of the L1 vertebral body with mild retropulsion of fragments. There is 40-50% height loss. There is evidence of prior vertebroplasty. Alignment is normal without evidence of spondylolisthesis. There is moderate to space narrowing at L5-S1. There is a moderate to severe facet arthrosis of the lower lumbar spine. There are moderate degenerative changes of the sacroiliac joints. CONCLUSION: When compared to the prior CT from 03/19/2017, no significant change in subacute compression fracture of the L1 vertebral body with post vertebroplasty changes. No new compression fracture. Dictated by: Jefe Best M.D. on 04/09/2017 at 17:14 Electronically approved by: Jefe Best M.D. on 04/09/2017 at 17:14 Dictated By: JEFE BEST MD 13 Transcribed By: GEMINI on 04/09/171713 COPY TO: FANTASMA MCKENZIE NP CT LUMBAR SPINE [place] [address] Patient Name: LUZ MARIA RAMIREZ MR #: [id number] : 1940 Age/Sex: 76/F Req #: [id number] Adm Physician: Ordered by: CONCHIS ODOM Report #: [id number] Location: ER Room/Bed: Procedure: [id number] CT/CT LUMBAR SPINE WO Exam Date: 03/19/17 Exam Time: 1355 REPORT STATUS: Signed History: Back pain. Recent vertebroplasty. Comparison studies: None Technique: Axial images were obtained from T12. Coronal and sagittal images reconstructed from the axial data. Intravenous contrast: None Findings: Number of non-rib bearing vertebral bodies: 5 Alignment: Normal lordosis. No scoliosis. Soft tissues: No abnormalities. Paraspinal muscles: Unremarkable. Vertebrae: Diffuse osteopenia No acute fractures, infection or neoplasm. Wedge compression deformity with approximately 40-50% loss of anterior height at L1 vertebral body, with vertebroplasty changes (hyperdense material within the vertebral body and left pedicle). Mildly retropulsed L1 superior endplate causing mild canal stenosis. Degenerative changes: L1-L2: No abnormalities. L2-L3: No abnormalities. L3-L4: Mild diffuse disc bulge and mild posterior element hypertrophy results in no significant canal stenosis and mild right foraminal narrowing L4-L5: Diffuse disc bulge and mild posterior element hypertrophy results in no significant canal stenosis and mild bilateral foraminal narrowing L5-S1: Mild diffuse disc bulge and mild facet hypertrophy results in no significant canal stenosis or foraminal narrowing Sacroiliac joints: Mild degenerative changes. Atherosclerotic changes of the abdominal aorta. Incidentally noted right 2 cm adenoma at the right adrenal gland IMPRESSION: 1. Subacute compression fracture of L1 vertebral body with approximately 40-50% loss of anterior height, stable. Mildly retropulsed L1 superior endplate mildly progressed from previous examination given the differences in technique. Mild T12-L1 canal stenosis. 2. No other acute abnormality. Signed by: DR Eris Ag M.D. on 03/19/2017 2:56 PM Dictated By: ERIS CONTRERAS MD [id number] Transcribed By: RICHARDSON on 03/19/17 8195 COPY TO: CONCHIS ODOM SPECIAL PROCEDURE IN SECURITY SUPERVISOR [place] [address] Patient Name: LUZ MARIA RAMIREZ MR #: [id number] : 1940 Age/Sex: 76/F Req #: [id number] [facility] Physician: LEXI ALEX MD Ordered by: LEXI ALEX MD Report #: [id number] Location: MED/SURG Room/Bed: [facility] Procedure: [id number] IR/SPECIAL PROCEDURE IN SECURITY SUPERVISOR Exam Date: Exam Time: REPORT STATUS: Signed History:76-year-old female with intractable back pain, found to have acute L1 compression fracture failed conservative management Comparison studies:MRI lumbar spine 02/28/2017 Procedure L1 Vertebral Augmentation Codes: ,69280 Percutaneous vertebral augmentation, 1 vertebral body, unilateral or bilateral cannulation, inclusive of all imaging guidance; lumbar , , , , , , ,50640 Moderate Sedation provided by the same physician performing the diagnostic or therapeutic service that the sedation supports, for patients 5 years of age or older for the first 30 minutes, Sedation: Moderate sedation administered by interventional radiology nurse under supervision of the interventional radiologist with continuous hemodynamic monitoring for 30 minutes. Physician: Ashwin Luna MD Medications: Fentanyl 50mcg IV, Versed 1mg IV Antibiotics: Ancef 1 gm IV administered by slow infusion 15 prior to start of case. Fluoroscopy : 3.4 minutes Contrast: 0 ml Radiation exposure:2179.3 cGycm2 Technique: Following informed written consent, patient was placed in a prone position on the angiography table. According to universal protocol, preprocedural time-out was performed with team members agreeing on patient identity, correct site and procedure to be done. The skin was clean, prepped and draped in the usual sterile fashion. Silk Screen Painter images were obtained. Local and periosteal anesthesia was injected and conscious sedation was administered. Then the L1 vertebral body was accessed under fluoroscopic guidance using a left unipedicular approach. Cavity creation was performed using an inflatable balloon tamp. Then under fluoroscopic guidance 3 cc's of Brunson HV PMMA was injected into the vertebral body. No cement extravasation was seen. Needle was then removed and hemostasis was acquired by manual compression. A sterile dressing was applied. Procedure was well tolerated and the patient remained neurologically intact and unchanged during and following the procedure. Patient reported 8/10 back pain prior to procedure and 0/10 back pain immediately following. Findings: L1 compression fractu re. Post procedure imaging demonstrates bilateral distribution of PMMA without cement extravasation. Impression: 1. L1 vertebral augmentation with inflatable balloon tamp, technically and clinically successful. 2. Per PQRS criteria, patient should be screened for osteoporosis. Signed by: Dr. Ashwin Luna M.D. on 03/03/2017 1:20 PM Dictated By: ASHWIN LUNA MD 1024 Transcribed By: RICHARDSON on 04/01/17 1024 COPY TO: LEXI ALEX MD
[2019-01-06 13:00] VITALS: BP 103/63
== END | disposition home or self-care (01) ==
LOC: OR 09:37
PROVIDERS: ATTEND Internal Medicine
DX: D50.0 Iron deficiency anemia secondary to blood loss (chronic) (principal); K62.1 Rectal polyp; K29.70 Gastritis, unspecified, without bleeding; Z98.0 Intestinal bypass and anastomosis status; K58.9 Irritable bowel syndrome, unspecified; J44.9 Chronic obstructive pulmonary disease, unspecified; E11.9 Type 2 diabetes mellitus without complications; I11.0 Hypertensive heart disease with heart failure; I50.9 Heart failure, unspecified; F32.9 Major depressive disorder, single episode, unspecified; F41.9 Anxiety disorder, unspecified; Z88.6 Allergy status to analgesic agent; Z88.8 Allergy status to other drugs, medicaments and biological substances; Z01.810 Encounter for preprocedural cardiovascular examination; Z01.812 Encounter for preprocedural laboratory examination; Z79.84 Long term (current) use of oral hypoglycemic drugs; Z90.49 Acquired absence of other specified parts of digestive tract; Z85.41 Personal history of malignant neoplasm of cervix uteri
CPT/HCPCS: 36415 ×2; 43239; 45380; 82948; 85025; 93005; J2001; J2250; J2704